=== PATIENT | female | born 1945 | race Caucasian/White ===

== ENCOUNTER 2022-09-24 21:25 | Emergency (ER) | payer MEDICARE ==
[~2022-09-24] VITALS: Ht 167.6 cm; Wt 113.4 kg
[2022-09-24] MEDS ORDERED: GABAPENTIN300 MG PO (21:51)
[2022-09-24] MEDS ORDERED: ZESTRIL10 MG PO (21:52)
[2022-09-24] MEDS ORDERED: TOPROL XL25 MG PO (21:52)
[2022-09-24] MEDS ORDERED: BAYER CHEWABLE81 MG PO (21:52)
[2022-09-24] MEDS ORDERED: LIPITOR80 MG GT (21:53)
[2022-09-24] MEDS ORDERED: ALDACTONE25 MG PO (21:54)
[2022-09-24] MEDS ORDERED: CYMBALTA60 MG PO (21:54)
[2022-09-24] MEDS ORDERED: SINGULAIR10 MG PO (21:54)
[2022-09-24] MEDS ORDERED: ULTRAM50 MG PO (21:55)
[2022-09-24] MEDS ORDERED: LASIX40 MG PO (21:55)
[2022-09-24] MEDS ORDERED: DICLOFENAC SODI50 MG PO (21:55)
[2022-09-24] MEDS ORDERED: K-TAB ER20 MEQ PO (21:56)
[2022-09-24] MEDS ORDERED: PROTONIX40 MG PO (21:57)
[2022-09-24] MEDS ORDERED: NITROSTAT0.4 MG SL (21:57)
--- OUTSIDE RECORDS SUMMARY | 2022-09-25 01:26 | XMS ---
PreManage Notification: GIANNI KATE Security [employer] Events No recent Security Events currently on file CRITERIA MET - [facility] OLESYA PEREZ Nurse Practitioner: Family Current PHONE: Unknown FELICITA CAMPO [facility]/[place]: [facility] PHONE: [phone] JOSÉ LUIS JIN [facility] Current PHONE: [phone] Anastasiya has no Care Guidelines for this patient. E.D. VISIT COUNT (12 MO.) 1 HANG Gonzalez TOTAL 1 NOTE: Visits indicate total known visits. ED/UCC VISIT TRACKING (12 MO.) 09/24/2022 21:28 HANG Walker OR TYPE: Emergency COMPLAINT: - FALL A MO AGO R ARM,SHOULDER INPATIENT VISIT TRACKING (12 MO.) No inpatient visits to display in this time frame [email or web address]
--- NOTE | 2022-09-27 20:30 | EKG ---
[facility] [address] [place] [address] Signed Normal sinus rhythm Septal infarct , age undetermined Abnormal ECG No previous ECGs available Confirmed by Nora Ortega MD () on 09/27/2022 8:29:57 PM Electronically Signed By: NORA ORTEGA MD 09/27/22 2030 PATIENT NAME: GIANNI KATE Electrocardiogram DATE OF : 41 PHYSICIAN: NORA ORTEGA MD REPORT #: [id number] REPORT IS CONFIDENTIAL AND NOT TO BE RELEASED WITHOUT AUTHORIZATION
== END 2022-09-25 00:43 | disposition home or self-care (01) ==
LOC: ED 21:25
DX: S53.401A Unspecified sprain of right elbow, initial encounter (principal); S43.401A Unspecified sprain of right shoulder joint, initial encounter; Z88.2 Allergy status to sulfonamides; W06.XXXA Fall from bed, initial encounter; Z79.899 Other long term (current) drug therapy; Z79.82 Long term (current) use of aspirin
CPT/HCPCS: 36415; 73030; 73060; 73080; 80053; 81001; 84484; 85025; 93005; 93010; 96374; 99284-25; J1885